=== PATIENT | male | born 1940 | race Caucasian/White ===

== ENCOUNTER 2024-12-18 09:25 | Inpatient (IN) | payer MEDICARE, SELFPAY ==
--- OUTSIDE RECORDS SUMMARY | 2023-09-21 07:20 | XMS_ITS ---
Author Organization [email or web address] Address [address] [place] [address] Care Team Providers Care Sugar Presser Name Role Phone Michael Kirk Primary Care Provider Noel Escobar PATIENT ACCOUNTS COORDINATOR, [facility] [phone] ALLERGIES No Known Allergies REASON FOR VISIT left knee MEDICATIONS Medication SIG (Take, Route, Frequency, Duration) Notes Start Date End Date Status Ramipril 5 MG 1 capsule Orally Onc e a day for 30 day(s) Active Cephalexin 500 MG 1 capsule Orally Thr ee times a day for 10 days 09/07/2023 Active Cephalexin 500 MG 1 capsule Orally Thr ee times a day for 10 days 09/07/2023 Active methylPREDNISolone 4 MG as directed Orally 024 Active Aspirin 81 81 MG 1 tablet Orally Once a day for 30 day(s) Active Hydrochlorothiazide 25 MG 1 tablet Orall y Once a day for 30 day(s) Active Escitalopram Oxalate 10 MG 1 tablet Oral ly Once a day for 30 day(s) Active Atorvastatin Calcium 10 MG 1 tablet Oral ly Once a day for 30 day(s) Active Pantoprazole Sodium 40 MG 1 tablet Orall y Once a day for 30 day(s) Active SOCIAL HISTORY Tobacco Use: Social History Observation Description Date Details (start date - stop date) Former Smoker 04/24/1974 - 04/24/1989 Sex Assigned At : Social History Observation Description Sex Assigned At Unknown Tobacco Use: Question Answer Notes Patient is a: former smoker When did you start smoking? 04/24/1974 When did you stop smoking? 04/24/1989 Alcohol screening: Question Answer Notes Did you have a drink contain ing alcohol in the past year? Yes How often did you have a dri nk containing alcohol in the past year? Two to four times a month (2 points) How many drinks did you have on a typical day when you were drinking in the past year? 3 or 4 (1 point) How often did you have six o r more drinks on one occasion in the past year? Never (0 points) Points 3 Interpretation Negative PROBLEMS Problem Type ICD Code Onset Dates Problem Status W/U Status Risk SNOMED Code Notes Problem Contusion of left knee, subsequent encounter (S80.02XD) 4 Active confirmed [id number] Problem Fall, subsequent encounter (W19.XXXD) 4 Active confirmed 3763250 VITAL SIGNS Blood pressure systolic 120 mm Hg 09/21/19 24 Blood pressure diastolic 70 mm Hg 024 Height 71 in 09/21/2023 Weight 190 lbs 09/21/2023 BMI 26.50 kg/m2 09/21/2023 Encounters Encounter Location Date Provider Diagnosis [facility] [address], [place] [address] 09/21/2023 Brittany Escobar NP Contusion of left knee, initial encounter S80.02XA ; Prepatellar bursitis of left knee M70.42 and Fall, subsequent encounter W19.XXXD ASSESSMENTS Encounter Date Diagnosis Assessment Notes Treatment Notes Treatment Clinical Notes 09/21/2023 Contusion of left knee, initial encounter (ICD-10 - S80.02XA) 09/21/2023 Prepatellar bursitis of left knee (ICD-10 - M70.42) 09/21/2023 Fall, subsequent encounter (ICD-10 - W19.XXXD) PLAN OF TREATMENT No Information History and Physical Notes * HPI (History of Present Illness) Category Sub-Category Detail Notes Depression Screening PHQ-2 (2015 Edition) Little interest or pleasure in doing things?: More than half the days Feeling down, depressed, or hopeless?: M ore than half the days Total Score: 4
--- OUTSIDE RECORDS SUMMARY | 2023-09-28 08:40 | XMS_ITS ---
Author Organization [facility] Address [address] [place] [address] Care Team Providers Care Salesperson Shoes Name Role Phone Michael Kirk Primary Care Provider Unavailrolando Escobar SENIOR APPLICATION SECURITY CONSULTANT, Brittany Unavailable [phone] Mario Alberto SOOD, James Mckeon [phone] REASON FOR VISIT rt thumb Encounters Encounter Location Date Provider Diagnosis [facility] [address] [place] [address] 09/28/2023 James Llanes MD PLAN OF TREATMENT No Information
--- OUTSIDE RECORDS SUMMARY | 2023-10-05 07:40 | XMS_ITS ---
Author Organization [facility] Address [address] [place] [address] Care Team Providers Care Invoice Machine Operator Name Role Phone Michael Kirk Primary Care Provider Noel Escobar NP, [facility] [phone] ALLERGIES No Known Allergies REASON FOR VISIT lt knee f/u MEDICATIONS Medication SIG (Take, Route, Frequency, Duration) Notes Start Date End Date Status Hydrochlorothiazide 25 MG 1 tablet Orall y Once a day for 30 day(s) Active methylPREDNISolone 4 MG as directed Orally 024 Not-Taking Cephalexin 500 MG 1 capsule Orally Three times a day for 10 days 09/07/2023 Not-Taking Cephalexin 500 MG 1 capsule Orally Three times a day for 10 days 09/07/2023 Active Ramipril 5 MG 1 capsule Orally Onc e a day for 30 day(s) Active Atorvastatin Calcium 10 MG 1 tablet Oral ly Once a day for 30 day(s) Active Escitalopram Oxalate 10 MG 1 tablet Oral ly Once a day for 30 day(s) Active Pantoprazole Sodium 40 MG 1 tablet Orall y Once a day for 30 day(s) Active Aspirin 81 81 MG 1 tablet [...] Never (0 points) Points 3 Interpretation Negative VITAL SIGNS Blood pressure systolic 120 mm Hg 10/05/19 24 Blood pressure diastolic 70 mm Hg 024 Height 71 in 10/05/2023 Weight 190 lbs 10/05/2023 BMI 26.50 kg/m2 10/05/2023 Encounters Encounter Location Date Provider Diagnosis [facility] [address] [place] [address] 10/05/2023 Brittany Escobar NP Prepatellar bursitis of left knee M70.42 and Fall, subsequent encounter W19.XXXD ASSESSMENTS Encounter Date Diagnosis Assessment Notes Treatment Notes Treatment Clinical Notes 10/05/2023 Prepatellar bursitis of left knee (ICD-10 - M70.42) 10/05/2023 Fall, subsequent encounter (ICD-10 - W19.XXXD) PLAN OF TREATMENT No Information History and Physical Notes * HPI (History of Present Illness) Category Sub-Category Detail Notes Depression Screening PHQ-2 (2015 Edition) Little interest or pleasure in doing things?: More than half the days Feeling down, depressed, or hopeless?: M ore than half the days Total Score: 4
[2024-12-18] VITALS (9 sets, daily range): BP systolic 97–150; BP diastolic 54–89; PULSE 60–70; RESP 14–20; TEMP 35.9–36.6; O2SAT 98–100
--- NOTE | ~2024-12-18 | XR_ITS ---
XR chest 2V 12/19/2024 07:59 Indication: Follow-up left pneumothorax Procedure: 2 view chest Comparison: 12/18/2024 Findings: Stable small left apical pneumothorax measuring 1.8 cm from the visceral to the parietal pleura at the apex. There is a nodular opacity in the left lateral pleural surface of uncertain etiology. No focal pneumonia, edema or significant effusion. Heart size normal. There is atherosclerosis of the aorta. Impression: 1: Stable small left apical pneumothorax. 2: Smoothly marginated pleural-based opacity left mid thorax. Recommend further evaluation with CT. Reviewed, dictated and finalized at location O. Impression: 1: Stable small left apical pneumothorax. 2: Smoothly marginated pleural-based opacity left mid thorax. Recommend further evaluation with CT.
--- NOTE | ~2024-12-18 | CT_ITS ---
EXAMINATION: CT diagnostic chest wo ninfa, 12/19/2024 12:00 CDT HISTORY: left pneumothorax COMPARISON: No comparisons available. TECHNIQUE: CT scan of the chest was performed without IV contrast. One or more of the following dose reduction techniques were used: automated exposure control, adjustment of the mA and/or kV according to patient size, use of iterative reconstruction technique. FINDINGS: No significant coronary calcification is present ([id number]) LUNGS: No tracheomalacia. No bronchiectasis. Moderate emphysematous changes. No areas of bullous formation. Apical scarring noted bilaterally with mild pulmonary fibrotic changes but no significant honeycombing. There is a small left apical anterior basilar pneumothorax with trace posterior right basilar pneumothorax also noted. HEART AND PERICARDIUM: Within normal limits. AORTA: Normal caliber aorta. ADENOPATHY/MEDIASTINUM: None. LIMITED VIEWS OF THE ABDOMEN: Punctate calcified splenic granulomas. Simple appearing right lobe liver cyst 1.5 x 1.6 cm. Punctate calcified liver granuloma is noted. Nonspecific mild patulous appearance of the esophagus. OSSEOUS STRUCTURES: No sclerotic or lytic lesions. No acute rib fracture is identified. Moderate loss of vertebral heights and disc heights throughout with kyphosis noted of the thoracic spine. OVERLYING SOFT TISSUES: Unremarkable. THYROID: The thyroid is unremarkable. IMPRESSION: Left pneumothorax detailed above. Reviewed, dictated and finalized at location A.
--- NOTE | ~2024-12-18 | XR_ITS ---
EXAMINATION: XR chest 1V portable, 12/18/2024 15:35 CDT HISTORY: pneumothorax COMPARISON: Comparison same day. Technique: Single view. Findings: The lungs are clear, no effusion. There is a small left apical pneumothorax. Heart is normal size. Mediastinal and hilar contours are within normal limits. Bony thorax no acute abnormality. Impression: Relatively stable small left apical pneumothorax Reviewed, dictated and finalized at location A. Impression: Relatively stable small left apical pneumothorax
--- NOTE | ~2024-12-18 | XR_ITS ---
XR chest 1V portable 12/18/2024 12:30 Indication: Pneumothorax Procedure: AP portable chest Comparison: 12/18/2024 Findings: Stable small left apical pneumothorax. Heart size normal. No significant effusion. There is atherosclerosis of the aorta. There is a coronary artery stent. Impression: 1: Stable small left apical pneumothorax. Reviewed, dictated and finalized at location O. Impression: 1: Stable small left apical pneumothorax.
--- NOTE | ~2024-12-18 | XR_ITS ---
EXAMINATION: XR chest 2V 12/18/2024 09:59 INDICATION: Left-sided chest pain PROCEDURE: 2 view chest COMPARISON: No prior studies for comparison. FINDINGS: Small left apical pneumothorax. Heart size normal. No mediastinal shift. No focal pneumonia, edema, pleural effusion. No acute osseous abnormality. There is diffuse idiopathic skeletal hyperostosis (DISH) of the thoracic spine. IMPRESSION: 1: Small left apical pneumothorax. Reviewed, dictated and finalized at location O.
--- OUTSIDE RECORDS SUMMARY | 2024-12-18 09:00 | XMS_ITS | Encounter Summary ---
Author Organization [facility] Address [address] [place] [address] Care Team Providers Care Front Desk Associate Name Role Phone Remigio Morgan MD Unavailable Chemo Gonzalez MD Unavailable [phone] Freedrick Yun MD Unavailable Britany Muniz MD Unavailable Jerson Brush MD Unavailable Pawel Cordova MD Unavailable Unknown, Notinfile Primary Care Provider Unavail able Reason for Visit * Reason Comments Chest Pain Chest discomfort on the left side of his chest, started this morning around 5 am is when he noticed it, he says it could have been there sooner than that Encounter Details Date Type Department Care Team (Late st Contact Info) Description 12/18/2024 9:00 AM CDT Office Visit [facility] [place] [address] [place] [address] Bella Miller, [facility] [address] [place] [id number] Chest pain, unspecified type (Primary Dx) Social History Tobacco Use Types Packs/Day Years Used Date Smoking Tobacco: Former Cigarettes Q uit: 1989 Smokeless Tobacco: Never Alcohol Use Standard Drinks/Week Comments Yes 0 (1 standard drink = 0.6 oz pur e alcohol) rare AUDIT-C Answer Date Recorded Q1: How often do you have a drink containing alc ohol? 2-4 times a month 07/13/2023 Q2: How many drinks containi ng alcohol do you have on a typical day when you are drinking? 1 or 2 07/13/2023 Q3: How often do you have si x or more drinks on one occasion? 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 Gender Identity Male 03/25/2020 8:55 AM LAUNDRY MARKER SUPERVISOR Sexual Orientation Not on file documented as of this encounter Last Filed Vital Signs Vital Sign Reading Time Taken Comments Blood Pressure 124/62 12/18/2024 8:53 AM CDT Pulse 67 12/18/2024 8:53 AM CDT Temperature 37 C (98.6 F) 12/18/2024 8:53 AM CDT Respiratory Rate 18 12/18/2024 8:53 AM CDT Oxygen Saturation 97% 12/18/2024 8:53 AM CDT Inhaled Oxygen Concentration - - Weight 82.5 kg (181 lb 14.4 oz) 12/18/2024 8:53 AM CDT Height 180.3 cm (5' 10.98) 12/18/2024 8:53 AM C DT Body Mass Index 25.38 12/18/2024 8:53 AM CDT documented in this encounter Plan of Treatment Scheduled Procedures Name Priority Associated Diagnoses Date/Ti me COLONOSCOPY Screening for colon cancer Colon polyp documented as of this encounter Visit Diagnoses Diagnosis Chest pain, unspecified type- Primary documented in this encounter Care Teams Front Desk Associate Relationship Specialty Start Date End Date Unknown, Notinfile PCP - General 12/18/24 Remigio Morgan MD [address] [place] [address] Referring Physician Cardiology 03/20/18 Chemo Gonzalez MD [address] [place] [address] Referring Physician Otolaryngology 03/20/18 Frederick Yun MD [address] [place] [address] Consulting Physician Gastroenterology 03/20/18 Britany Muniz MD [address] [place] [address] Referring Physician Dermatology 03/20/18 Jerson Brush MD [address] [place] [address] General Surgery 03/20/18 Pawel Cordova MD [address] [place] [address] [address] [facility] [place] [address] Referring Physician Neurology 03/20/18 documented as of this encounter
--- NOTE | 2024-12-18 09:26 | ECG_ITS ---
Test Date: 2024-12-18 09:30:43 Measurements Intervals [place] Rate: 64 P: 64 TN: 185 QRS: 30 QRSD: 132 T: 52 QT: 446 QTc: 462 Interpretive Statements SINUS RHYTHM LEFT BUNDLE BRANCH BLOCK BASELINE ARTIFACT- I, II, III, AVR, AVL, AVF ABNORMAL ECG No previous ECG available for comparison Electronically Signed On 12-18-2024 09:35:07 CDT by Jimmy hWeeler D.O.
--- NOTE | 2024-12-18 10:14 | ED.CHESTPAIN ---
HPI - Chest Pain General Chief Complaint: Chest Pain Stated Complaint: left sided chest discomfort Time Seen by Provider: 12/18/24 09:52 History of Present Illness HPI narrative: This is an 84-year-old male who presents to the ED for chest pain. Patient states that he woke up this morning with left upper chest pain. He has had no shortness of breath cough. He states that his had similar pains few years ago and was diagnosed with heart attack prompting him to come to the ED for further evaluation. No prior cardiac history that he is aware of. He is a nonsmoker. No known traumas. Related Data Home Medications ?Medication ?Instructions ?Recorded ?Confirmed ?Last Taken ?Type atorvastatin 10 mg tablet 10 mg PO DAILY 12/18/24 12/18/24 12/18/24 History escitalopram oxalate 10 mg tablet 10 mg PO DAILY 12/18/24 12/18/24 12/18/24 History hydrochlorothiazide 12.5 mg capsule 12.5 mg PO DAILY 12/18/24 12/18/24 12/18/24 History pantoprazole 40 mg tablet,delayed 40 mg PO DAILY 12/18/24 12/18/24 12/18/24 History release ramipril 5 mg capsule 5 mg PO DAILY 12/18/24 12/18/24 12/18/24 History Allergies Allergy/AdvReac Type Severity Reaction Status Date / Time No Known Allergies Allergy Verified 12/18/24 09:38 Review of Systems Review of Systems: Gen.: Denies fevers or chills Eyes: Denies eye pain or visual change ENT: Denies congestion Respiratory: Denies shortness of breath or cough CV: As per HPI GI: Denies abdominal pain nausea, emesis or diarrhea denies burning, urgency, frequency or hematuria Musculoskeletal: Denies back pain or muscle pain Neuro: Denies numbness, tingling, weakness or focal weakness Skin: Denies rash Except as documented, all other systems reviewed and negative Exam Narrative: APPEARANCE: No acute distress, nontoxic, resting in bed EYES: EOMI HEENT: Normocephalic, atraumatic, OMM RESPIRATORY: No respiratory distress diminished breath sounds to the left apical lung CARDIOVASCULAR: Regular rate and rhythm without murmurs rubs or gallops. ABDOMINAL: Soft, nontender, nondistended, no rebound or guarding MUSCULOSKELETAl: Moves all extremities. No clubbing, cyanosis or edema. NEURO: Awake and alert. Following commands, speech normal, no focal deficits SKIN:: Warm, dry. No rashes lesions or abrasions PSYCHIATRIC: Normal affect/mood, Course Vital Signs Vital signs: Vital Signs Temperature 97.9 F 12/18/24 09:35 Pulse Rate 67 12/18/24 09:35 Respiratory Rate 17 12/18/24 09:35 Blood Pressure 118/89 12/18/24 09:35 Pulse Oximetry 100 12/18/24 09:35 Oxygen Delivery Room Air 12/18/24 09:35 Temperature 97.9 F 12/18/24 09:35 Pulse Rate 60 12/18/24 15:13 Respiratory Rate 17 12/18/24 15:13 Blood Pressure 115/54 L 12/18/24 15:13 Pulse Oximetry 100 12/18/24 15:13 Oxygen Delivery Room Air 12/18/24 09:48 MDM - Chest Pain MDM Narrative Medical decision making narrative: 84-year-old male with history of hyperlipidemia, CAD status post stents x2 who presented to the ED for chest pain. On initial evaluation, patient was in no acute distress, afebrile, hemodynamically stable. He did have diminished breath sounds to the left apical lung. Chest x-ray did reveal a small apical pneumothorax. He was not requiring any supplemental oxygen. This is small enough that it does not require a chest tube at this time. He was placed on supplemental oxygen. After 3 hours of oxygen, repeat chest x-ray was obtained and showed a stable pneumothorax. Labs without significant abnormalities. EKG showed no concerning findings. Given his age and risk factors, for patient would benefit from admission for close monitoring of his pneumothorax. He was placed on non-rebreather to try to resolve the pneumothorax. He I did discuss the case with surgery who will see the patient as consult. Case was discussed with hospitalist who will admit the patient. Differential Diagnosis Differential diagnosis: Likely unstable angina pectoris, atypical chest pain, costochondritis and other (pneumothorax) Medical Records Data Attestation: I reviewed the patient's medical records. Lab Data Attestation: I reviewed the patient's lab results. 12/18/24 10:21 12/18/24 10:21 Labs: Lab Results 12/18/24 12/18/24 Range/Units 10:21 13:54 WBC 8.1 (4.5-10.0) K/mm3 RBC 4.59 L (4.6-6.20) M/mm3 Hgb 14.3 (14.0-18.0) g/dL Hct 43.2 (42.0-52.0) % MCV 94.1 (80-100) fl MCH 31.2 (26-34) pg MCHC 33.1 (32-36) g/dl RDW 12.8 (11.5-14.5) % Plt Count 234 (150-375) k/mm3 MPV 9.4 (7.4-10.4) fl Immature Gran % (Auto) 0.4 (0-0.5) % Neut % (Auto) 58.8 (45.5-73.1) % Lymph % (Auto) 27.3 (18.3-44.2) % [place] % (Auto) 10.8 H (2.6-8.5) % Eos % (Auto) 2.3 (0-4.4) % Baso % (Auto) 0.4 (0.2-1.2) % Lymph # (Auto) 2.21 (0.9-3.2) K/mm3 [place] # (Auto) 0.9 H (0.1-0.6) K/mm3 Eos # (Auto) 0.2 (0-0.3) K/mm3 Baso # (Auto) 0.0 (0.0-0.1) K/mm3 Abs Immat Gran (auto) 0.03 (0.00-0.031) K/mm3 Absolute Neuts (auto) 4.8 (1.3-6.7) K/mm3 Absolute Nucleated RBC 0.000 (0.0-0.012) K/mm3 Nucleated RBC % 0.0 (0.0-0.2) % PT 13.4 (11.1-14.7) Seconds INR 1.0 APTT 37.7 H (22.3-36.8) Seconds Sodium 136 L (137-145) mmol/L Potassium 4.4 (3.4-5.0) mmol/L Chloride 99 (98-107) mmol/L Carbon Dioxide 31 H (22-30) mmol/L Anion Gap 6 (4-12) mmol/L BUN 19 (9-20) mg/dL Creatinine 0.88 (0.7-1.3) mg/dL Estim Creat Clear Calc 56 ml/min Estimated GFR > 60 (59 - ) Glucose 99 (65-110) mg/dL Calcium 9.5 (8.4-10.2) mg/dL Total Bilirubin 1.3 (0.2-1.3) mg/dL AST 35 (17-59) U/L ALT 22 (6-50) U/L Alkaline Phosphatase 63 (38-126) U/L Troponin I < 0.012 < 0.012 (0.000-0.034) ng/mL Total Protein 7.5 (6.3-8.2) g/dL Albumin 4.5 (3.5-5.1) g/dL Lipase 104 (23-300) U/L Imaging Data Radiologist's impression: Impressions Chest X-Ray 12/18/24 10:01 IMPRESSION: 1: Small left apical pneumothorax. Chest X-Ray 12/18/24 12:32 Impression: 1: Stable small left apical pneumothorax. ECG Data EKG #1: Attestation: I personally reviewed and interpreted this ECG as follows: ECG completion date: 12/18/24 ECG completion time: 09:30 Interpretation: Normal sinus rhythm rate of 64, left bundle-branch block, does not meet Sgarbossa criteria Discharge Plan Discharge Clinical Impression: Pneumothorax Qualifiers: Pneumothorax type: spontaneous, primary Qualified Code(s): J93.11 - Primary spontaneous pneumothorax Patient Disposition: Still a Patient Condition: Stable
[2024-12-18 10:28] LABS: Hematocrit 43.2 % (42.0-52.0); Hemoglobin 14.3 g/dL (14.0-18.0); Immature Granulocyte Percent A 0.4 % (0-0.5); Lymphocytes Absolute Auto 2.21 K/mm3 (0.9-3.2); Mean Corpuscular HGB Conc 33.1 g/dl (32-36); Mean Corpuscular Hemoglobin 31.2 pg (26-34); Mean Corpuscular Volume 94.1 fl (80-100); Nucleated Red Blood Cells Absolute Auto 0.000 K/mm3 (0.0-0.012); Nucleated Red Blood Cells Perc 0.0 % (0.0-0.2); Platelet Count Result 234 k/mm3 (150-375); Red Blood Count 4.59 M/mm3 (4.6-6.20); White Blood Count 8.1 K/mm3 (4.5-10.0)
[2024-12-18 10:48] LABS: INR 1.0; Prothrombin Time 13.4 Seconds (11.1-14.7)
[2024-12-18 10:50] LABS: Alanine Aminotransferase 22 U/L (6-50); Albumin Level 4.5 g/dL (3.5-5.1); Alkaline Phosphatase 63 U/L (38-126); Anion Gap 6 mmol/L (4-12); Aspartate Amino Transferase 35 U/L (17-59); Bilirubin,Total 1.3 mg/dL (0.2-1.3); Blood Urea Nitrogen 19 mg/dL (9-20); Calcium 9.5 mg/dL (8.4-10.2); Carbon Dioxide 31 mmol/L (22-30); Chloride 99 mmol/L (98-107); Estimated CRCL calculation 56 ml/min; Estimated Glomerular Filt Rate > 60; Glucose 99 mg/dL (65-110); Lipase 104 U/L (23-300); Potassium 4.4 mmol/L (3.4-5.0); Sodium 136 mmol/L (137-145); Total Protein 7.5 g/dL (6.3-8.2)
[2024-12-18 11:00] LABS: Troponin I < 0.012 ng/mL (0.000-0.034)
--- OUTSIDE RECORDS SUMMARY | 2024-12-18 11:37 | XMS_ITS | Encounter Summary ---
Author Organization [facility] Address 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
--- OUTSIDE RECORDS SUMMARY | 2024-12-18 11:37 | XMS_ITS | Encounter Summary ---
Author Organization [facility] Address 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
--- OUTSIDE RECORDS SUMMARY | 2024-12-18 11:37 | XMS_ITS | Encounter Summary ---
Author Organization [facility] Address 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
--- OUTSIDE RECORDS SUMMARY | 2024-12-18 11:37 | XMS_ITS | Encounter Summary ---
Author Organization [facility] Address 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
--- OUTSIDE RECORDS SUMMARY | 2024-12-18 11:37 | XMS_ITS | Encounter Summary ---
Author Organization [facility] Address 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
--- OUTSIDE RECORDS SUMMARY | 2024-12-18 11:37 | XMS_ITS | Clinical Summary ---
Author Organization [facility] al Address [address] [place] [address] Care Team Providers Care Child Support Officer Name Role Phone Remigio Morgan MD Unavailable Chemo Gonzalez MD Unavailable [phone] Frederick Yun MD Unavailable Britany Muniz MD Unavailable [phone] Jerson Brush MD Unavailable [phone] Pawel Cordova MD Unavailable Unknown, Notinfile Primary Care Provider Unavail able Allergies No known active allergies Medications aspirin 81 mg tabletIndications:Myocar dial Reinfarction Prevention Take 1 tablet (81 mg total) by mouth nightly 09/14/19 11 Active multivitamin/iron/folic acid (CENTRUM ORAL) Take 1 tablet by mouth daily Active hydroCHLOROthiazide (HYDRODIURIL) 12.5 mg tabletIndications:Primar y hypertension TAKE 1 TABLET BY MOUTH EVERY DAY 90 tablet 3 04/27/19 24 Active atorvastatin (LIPITOR) 10 mg tabletIndications:Pure hypercholesterolemia TAKE 1 TABLET BY MOUTH DAILY 90 tablet 3 05/01/19 24 Active ramipriL (ALTACE) 5 mg capsuleIndications:Prima ry hypertension TAKE 1 CAPSULE BY MOUTH EVERY DAY 90 capsule 3 07/24/19 24 Active escitalopram (LEXAPRO) 10 mg tabletIndications:Reacti ve depression Take 1 tablet (10 mg total) by mouth daily 90 tablet 3 07/31/[address] (PROTONIX) 40 mg EC tabletIndications:Gastro esophageal reflux disease without esophagitis Take 1 tablet (40 mg total) by mouth daily 90 tablet 3 07/31/19 24 Active meloxicam (MOBIC) 7.5 mg tabletIndications:Cuboid syndrome of right foot,Pain of midfoot, right Take 1 tablet (7.5 mg total) by mouth daily for 10 days, THEN 1 tablet (7.5 mg total) daily as needed for pain for up to 7 days. 17 tablet 01/17/20 24 Active Active Problems Problem Noted Date Diagnosed Date Pain of midfoot, right 01/17/2024 Cuboid syndrome of right foot 01/17/2024 Assessment & Plan (01/17/2024 2:10 PM CDT): Clinically suspected mechanically induced arthralgia vs gout No evidence of infectious etiology Labs & baseline xray today r/o stress fx, erosive or inflammatory arthritis, gout +meloxicam x 10 days then prn;SER Counseled of supportive measures, bracing, heat/ice, topical analgesics, modifications interim Pending order for PT & podiatry further eval pending wrkup Penile lesion 05/05/2022 Assessment & Plan (05/05/2022 11:32 AM VIDEO CONTROL ENGINEER): Very sharply marginated red area on the tip of the penis. Suggest urology vs derm referral. Thyroid nodule 04/06/2021 Overview (05/05/2022): 05/2021 biopsy of one of nodules with benign cytology Assessment & Plan (05/05/2022 11:21 AM VIDEO CONTROL ENGINEER): Checking ultrasound again. No obvious symptoms. Recent biopsy as noted. Assessment & Plan (04/06/2021 1:53 PM VIDEO CONTROL ENGINEER): No obvious associated symptoms. Get a 1 time ultrasound to make certain this appears benign. High threshold for further evaluation. Discussed this in great detail with the patient. Dupuytren's contracture of left hand 09/22/2020 Assessment & Plan (09/22/2020 11:49 AM CDT): Chronic; without change or limitation to ADLs, weakness. Bracing would be of benefit. Declined desire for further consultation, management today. Will cont to monitor Medicare annual wellness visit, subsequent 03/26 Assessment & Plan (07/13/2023 10:55 AM CDT): Checking labs per routine and pertaining to problems listed . HM items reviewed and updated . No new concerns. Immunizations are utd Assessment & Plan (05/05/2022 11:21 AM VIDEO CONTROL ENGINEER): Checking labs per routine and pertaining to problems listed . HM items reviewed and updated . No new concerns. Recommended covid vaccine. Assessment & Plan (04/06/2021 10:58 AM VIDEO CONTROL ENGINEER): Checking labs per routine and pertaining to problems listed . HM items reviewed and updated . No new concerns. No new concerns. Assessment & Plan (04/03/2020 1:28 PM VIDEO CONTROL ENGINEER): Checking labs per routine and pertaining to problems listed . HM items reviewed and updated . No new concerns. Assessment & Plan (03/26/2019 12:51 PM VIDEO CONTROL ENGINEER): Checking labs per routine and pertaining to problems listed . HM items reviewed and updated . No new concerns. Urinary frequency 08/30/2018 Assessment & Plan (03/26/2019 12:51 PM VIDEO CONTROL ENGINEER): He has flomax in case sx get worse. Assessment & Plan (08/30/2018 11:47 AM CDT): Some increased in nocturia lately . May consider flomax. 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 No signs of recurrence. Reactive depression 03/20/2018 Assessment & Plan (07/13/2023 10:57 AM CDT): No obvious symptoms related . Taking his meds without complications. Assessment & Plan (05/05/2022 11:22 AM VIDEO CONTROL ENGINEER): Remains a chronic issue . He is not interested in counseling, Or adjustment in antidepressants. Fortunately no HI/SI. Assessment & Plan (04/06/2021 1:50 PM VIDEO CONTROL ENGINEER): Persistent. He he believes this will never get better since the loss of his . No SI/HI. Continue Lexapro for now. Assessment & Plan (04/03/2020 1:21 PM VIDEO CONTROL ENGINEER): Has been improved with the lexapro. Assessment & Plan (09/23/2019 1:39 PM CDT): Continue with lexapro No new complications Assessment & Plan (03/26/2019 1:08 PM VIDEO CONTROL ENGINEER): Continue with lexapro for now and may increase the dose over time. Assessment & Plan (08/30/2018 11:46 AM CDT): Psychological condition is Poorly controlled. Still severe depression. NOSI/HI. Trouble sleeping and with low energy . Assessment & Plan (03/20/2018 2:23 PM VIDEO CONTROL ENGINEER): Psychological condition is Poor now with some depression And no SI. Vitamin D deficiency 03/20/2018 Assessment & Plan (07/13/2023 10:59 AM CDT): Checking vitamin d level. NO new concerns. Assessment & Plan (04/06/2021 1:50 PM VIDEO CONTROL ENGINEER): Checking levels today. Continue supplements. Assessment & Plan (03/26/2019 1:07 PM VIDEO CONTROL ENGINEER): Checking labs now . No concerns. Assessment & Plan (03/20/2018 2:31 PM VIDEO CONTROL ENGINEER): Checking labs now Fatigue 09/14/2011 Assessment & Plan (07/13/2023 10:57 AM CDT): Energy is overall fine. Some fatiguability Assessment & Plan (08/30/2018 11:45 AM CDT): Has been chronic and bothersome. No obvoius source. Some trouble With sleeping. Assessment & Plan (03/20/2018 2:18 PM VIDEO CONTROL ENGINEER): Some chronic unchanged. Chronic coronary artery disease 12/01/2009 Assessment & Plan (07/13/2023 10:58 AM CDT): No chest pain, palpitations, sob or other complaints. Assessment & Plan (05/05/2022 11:23 AM VIDEO CONTROL ENGINEER): No obvious new symptoms. Has had a cardiology full assessment recently . No active symptoms. Assessment & Plan (04/03/2020 1:26 PM VIDEO CONTROL ENGINEER): No recent symptoms related. Continue current regimen Assessment & Plan (08/30/2018 11:43 AM CDT): Coronary artery disease is Well controlled and follwing with dr shelton Ankylosing spondylitis 12/01/2009 Assessment & Plan (07/13/2023 10:59 AM CDT): No obvious new complaints. Assessment & Plan (05/05/2022 11:31 AM VIDEO CONTROL ENGINEER): Encouraged physical therapy exercises. Symptoms are tolerable. NO new complications. Assessment & Plan (09/23/2019 1:40 PM CDT): No recurrent sx. No progressive back or neck pain. Assessment & Plan (03/26/2019 1:09 PM VIDEO CONTROL ENGINEER): No new symptoms since fused . Assessment & Plan (03/20/2018 2:15 PM VIDEO CONTROL ENGINEER): No progressive complaints. Some bending forward more over time. Hyperlipidemia 12/01/2009 Assessment & Plan (07/13/2023 10:56 AM CDT): NO obvious sx or side effects from the elevation in cholesterol. Taking meds without obvious side effects . No muscle aches nor weakness. Assessment & Plan (05/05/2022 11:22 AM VIDEO CONTROL ENGINEER): NO obvious sx or side effects from the elevation in cholesterol. Taking meds without obvious side effects . No muscle aches nor weakness. Assessment & Plan (04/03/2020 1:26 PM VIDEO CONTROL ENGINEER): Checking labs now Assessment & Plan (03/26/2019 1:08 PM VIDEO CONTROL ENGINEER): Continue with current meds. No concerns. Assessment & Plan (03/20/2018 2:09 PM VIDEO CONTROL ENGINEER): Lipid abnormalities are well controlled on current regimen . No complications Hypertension 12/01/2009 Assessment & Plan (07/13/2023 10:56 AM CDT): Blood pressure is well controlled on current regimen. No complications. Assessment & Plan (05/05/2022 11:22 AM VIDEO CONTROL ENGINEER): Blood pressure is adequately controlled Assessment & Plan (04/06/2021 1:51 PM VIDEO CONTROL ENGINEER): Blood pressure well controlled. Assessment & Plan (04/03/2020 1:21 PM VIDEO CONTROL ENGINEER): Hypertension is improving with treatment. Associated signs and symptoms: none. Medication Side effects, no medication side effects noted and fatigue Continue current treatment regimen. Patient Education: Reviewed risks of hypertension and principles of treatment. Blood pressure will be reassessed at the next regular appointment. Assessment & Plan (09/23/2019 1:39 PM CDT): Well controlled though some orthostatic change is minimal. No complications Assessment & Plan (03/26/2019 12:52 PM VIDEO CONTROL ENGINEER): bp has been well controlled. No chest pain, palpitatoins . Assessment & Plan (08/30/2018 11:44 AM CDT): Hypertension is Well controlled on current regimen . Assessment & Plan (03/20/2018 2:10 PM VIDEO CONTROL ENGINEER): Hypertension is well controlled on current regimen . No complications. Resolved Problems Problem Noted Date Diagnosed Date Resolved Date Effusion of olecranon bursa, left 09/22/2020 04/06/2021 Olecranon bursitis of left elbow 09/22/2020 04/06/2021 Assessment & Plan (09/22/2020 11:56 AM CDT): Traumatic, noninfectious Xray today given preceding trauma Neurovascularly intact Compression, ice, elevation Declined desire for UC for drainage- indications warranting UC, ED provideded Consult placed to [facility] at [facility] for drainage as offered conservative management in the interim. Chest x-ray abnormality 09/23/201904/24 Overview (05/05/2022): Chest ct in 2020 Unchanged 3 mm pulmonary nodule in the right upper lobe which requires no further follow-up per Fleischner Society guidelines. Assessment & Plan (04/06/2021 10:54 AM VIDEO CONTROL ENGINEER): Found with thyroid nodule.NO obvious complications nor symptoms. No further follow up on lung scan Assessment & Plan (04/03/2020 1:28 PM VIDEO CONTROL ENGINEER): Pulmonary nodule That is small and unlikely of significance. Will get f/u chest ct in September Assessment & Plan (09/23/2019 1:39 PM CDT): Likely this was atelacetasis. No complications. Reassured A f/u cxr was fine. Chronic frontal sinusitis 05/28/2018 Nasal mass 05/10/2018 04/06/2021 Leukocytosis 01/26/2015 05/05/2022 Encounters Date Type Department Care Team Description 12/18/2024 9:00 AM CDT Office Visit [facility] [address] [address] Bella Miller, DEVIN Chest pain, unspecified type (Primary Dx) from Last 3 Months Immunizations Immunization Administration Dates Next Due Influenza, Quadrivalent, Hig h Dose, Preservative Free, Intrr 01/24/2022,01/12/2021,02/10/2020 Influenza, Quadrivalent, Spl it, Preservative Free, Intramuscular 01/28/2015 Influenza, Trivalent, High D ose, Split, Preservative Free, Intramuscular 02/04/2019,02/04/2018,01/31/2017 Influenza, Trivalent, IM (MDV) 05/22/2017 Influenza, Trivalent, Preser vative Free, Intramuscular 02/04/2013,02/07/2012,02/07/2011 Influenza, Unspecified 02/04/2019 Pneumococcal Conjugate PCV 13 05/22/2017, 015 Pneumococcal Conjugate Pcv20 01/25/2022 Pneumococcal Polysaccharide PPV23 02/10/2017 ZOSTER Recombinant 11/09/2018,09/07/2018 Surgical History Surgery Date Site/Laterality Comments KNEE SURGERY 04/24/2007 - 04/23/2008 Left I and D pre-patellar bursa SINUS SURGERY 04/24/2018 - 04/23/2019 resection papilloma CATARACT EXTRACTION COLONOSCOPY CORONARY ANGIOPLASTY WITH STENT PLACEMENT 04/24/2002 - 04/23/2003 OTHER SURGICAL HISTORY thyroid biopsy Medical History Medical History Date Comments Tear of lateral cartilage or meniscus of knee, current Displaced Acute Lateral Meni scus Tear Of The Left Knee - (Added by TW Conv) Anxiety Sinusitis Squamous cell skin cancer Colon polyp Hyperlipidemia Coronary artery disease Hypertension Lesion of penis Myocardial infarct, old Thyroid nodule Depression HL (hearing loss) bilateral hear ing aides Family History Medical History Relation Name Comments No Known Problems Daughter Heart disease Father Stroke Father Stroke Syndrome - (Added by TW Conv) Diabetes Mother Diabetes Mellit us - (Added by TW Conv) Heart attack Mother Acute Myocardia l Infarction - (Added by TW Conv) Heart disease Mother ALS Sister 1 Amyotrophic Lat eral Sclerosis - (Added by TW Conv) No Known Problems Sister 2 No Known Problems Son 1 No Known Problems Son 2 Anesthesia problems Neg Hx Relation Name Status Comments Daughter Alive Father Mother Sister 1 Sister 2 Alive Son 1 Alive Son 2 Alive Social History Tobacco Use Types Packs/Day Years Used Date Smoking Tobacco: Former Cigarettes Q uit: 1989 Smokeless Tobacco: Never Tobacco Cessation:Counseling Given: Not Answered Alcohol Use Standard Drinks/Week Comments Yes 0 [...] on file Legal Sex Male 3:27 AM VIDEO CONTROL ENGINEER Gender Identity Male 03/25/2020 8:55 AM VIDEO CONTROL ENGINEER Sexual Orientation Not on file Obstetrics History Last Filed Vital Signs Vital Sign Reading [...] Mass Index 25.38 12/18/2024 8:53 AM CDT Plan of Treatment Scheduled Procedures Name Priority Associated Diagnoses Date/Ti me COLONOSCOPY Screening for colon cancer Colon polyp Health Maintenance Due Date Last Done Comments Hepatitis B Screening 1958 Covid-19 Vaccine (2023- 5 season) 2023 11/23/2021, 01/15/2021, 06/09/2020, Additional history exists Depression Screening 07/12/2024 07/13/2023, 05/05/2022, 04/06/2021, Additional history exists Fall Risk Assessment 07/12/2024 07/13/2023, 06/07/2022, 05/05/2022, Additional history exists Well Visit 65+ 07/12/2024 07/13/2023, 04/24, 04/06/2021, Additional history exists Influenza Vaccine (#1) 2024 , 01/09/2023, 05/02/2022, Additional history exists Colon Cancer Screening-Colonoscopy 06/18/2026 06/18/2021, 04/27/2017 Zoster Vaccine Completed 11/09/2018, 09/07/2018 Pneumococcal vaccine 65+ Completed 023, 01/25/2022, 05/22/2017, Additional history exists DTaP/Tdap/Td Vaccine Discontinued Medical Devices Implanted Type Area Rustic Terrazzo Setter Device Identifier Shelf Expiration Date Model / Serial / Lot Stents X 2 N/A: Heart Procedures Procedure Name Priority Date/Time Associated Diagnosis Comments COLONOSCOPY 06/18/2021 3:22 PM VIDEO CONTROL ENGINEER from Last 3 Months or Most Recently Relevant to Health Maintenance Results * COLONOSCOPY (06/18/2021 3:22 PM VIDEO CONTROL ENGINEER) Anatomical Region Laterality Modality Other Narrative Procedure Note Loren Hi MD - 06/18/2021 3:22 PM CST ENDOSCOPY LAB Patient Name: Jonathan Stein Procedure Date: 06/18/2021 3:22 PM Date of : 1940 Admit Type: Outpatient Age: 80 Gender: Male Attending MD: Loren Hi M.D. Room: [facility] 04 Note Status: Finalized Procedure: Colonoscopy Indications: High risk colon cancer surveillance: Personalhistory of colonic polyps, last five years ago per patient with one polyp found Providers: Loren Hi M.D. Referring MD: Michael Kirk M.D. Medicines: None Complications: No immediate complications. Estimated Blood Loss: Estimated blood loss: none. Procedure: Pre-Anesthesia Assessment: - Prior to the procedure, a History and Physicalwas performed, and patient medications, allergies and sensitivities were reviewed. Patient elected tohave procedure done without sedation. - The risks and benefits of the procedure and the sedation options and risks were discussed with the patient. All questions were answered and informed consent was obtained. - Patient identification and proposed procedurewere verified prior to the procedure by the physicianand the nurse. The procedure was verified in theprocedure room. The benefits, risks and alternatives of theprocedure and sedation were discussed and informed consentwas obtained. All questions were answered. Please referto the signed informed consent document in the medical record. The scope was passed under direct vision.The [id number] was introduced through the anusand advanced to the terminal ileum, with identificationof the appendiceal orifice and IC valve. Thecolonoscopy was performed without difficulty. The patient tolerated the procedure well. Findings: The perianal and digital rectal examinations were normal. The terminal ileum appeared normal. A single medium-sized angiodysplastic lesion without bleeding wasfound in the ascending colon. A 3 mm polyp was found in the ascending colon. The polyp was sessile. The polyp was removed with a cold biopsy forceps. Resection and retrieval were complete. Verification of patient identification forthe specimen was done. A 3 mm polyp was found in the transverse colon. The polyp wassessile. The polyp was removed with a cold biopsy forceps. Resection and retrieval were complete. External hemorrhoids were found during retroflexion. The hemorrhoids were small. Impression: - The examined portion of the ileum was normal. - A single non-bleeding colonic angiodysplasticlesion. - One 3 mm polyp in the ascending colon, removedwith a cold biopsy forceps. Resected and retrieved. - One 3 mm polyp in the transverse colon, removedwith a cold biopsy forceps. Resected and retrieved. - External hemorrhoids. Recommendation: - The patient will be observed post-procedure,until all discharge criteria are met. - Resume previous diet. - Await pathology results. - Recommend discussing risk/benefits of future colonoscopies with primary care doctor. If patient wishes to pursue further colonoscopies, likely will need repeat in 5 years. Loren Hi M.D. 06/18/2021 3:53:40 PM Number of Addenda: 0 Note Initiated On: 06/18/2021 3:22 PM Loren Hi MD ENDOSCOPY PROCEDURES Final Result from Last 3 Months or Most Recently Relevant to Health Maintenance Insurance [facility] [employer] [facility] Address: [address] [address] [place] [address] [facility] MEDICARE [facility] MEDICARE [facility] MEDICARE [facility] MEDICARE Advance Directives For more information, please contact: [phone] * Full Code (Latest Code Status on File) Date Activated Date Inactivated Comments 06/18/2021 1:31 PM 06/18/2021 8:21 PM * Full Code Date Activated Date Inactivated Comments 06/12/2018 7:00 PM 06/13/2018 6:38 PM Care Teams Child Support Officer Relationship Specialty Start Date End Date Unknown, Notinfile PCP - General 12/18/24 Remigio Morgan MD [address] [place] [address] Referring Physician Cardiology 03/20/18 Chemo Gonzalez MD [address] [place] [address] Referring Physician Otolaryngology 03/20/18 Frederick Yun MD [address] [place] [address] Consulting Physician Gastroenterology 03/20/18 Britany Muniz MD [address] [place] [address] Referring Physician Dermatology 03/20/18 Jerson Brush MD [address] [place] [address] General Surgery 03/20/18 Pawel Cordova MD [address] [place] [address] DR [address] [facility] [address] [place] [address] Referring Physician Neurology 03/20/18
--- OUTSIDE RECORDS SUMMARY | 2024-12-18 11:37 | XMS_ITS | Encounter Summary ---
Author Organization [facility] Address 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
--- OUTSIDE RECORDS SUMMARY | 2024-12-18 11:37 | XMS_ITS | Clinical Summary ---
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 Gender Identity Not on file Sexual Orientation Not on file Plan of Treatment Health Maintenance Due Date Last Done Comments DTAP/TDAP/TD VACCINES (1 - Tdap) 1959 PNEUMOCOCCAL VACCINE 50+ YEA RS (1 of 1 - PCV) 1988 ZOSTER VACCINE (1 of 2) 1988 RSV VACCINE (60+ or ) (1 - 1-dose 75+ series) 2013 INFLUENZA VACCINE (#1) 2024 Colorectal Cancer Screening Discontinued FIT/FOBT Q 1 year Discontinued 07/05/2000, 06/23/1999 COLORECTAL SCREENING Discontinued FIT-DNA Q 3 years Discontinued Flex Sig/CT Colonography Q 5 years Discontinued Insurance MEDICARE PART A AND B [facility] SUPP Care Teams Vegetable Loader Relationship Specialty Start Date End Date Michael Kirk MD PCP - General Internal Medicine 08/19/13
--- OUTSIDE RECORDS SUMMARY | 2024-12-18 11:37 | XMS_ITS | Encounter Summary ---
Author Organization [facility] Address 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
--- OUTSIDE RECORDS SUMMARY | 2024-12-18 11:37 | XMS_ITS | Encounter Summary ---
Author Organization [facility] Address 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
--- OUTSIDE RECORDS SUMMARY | 2024-12-18 11:37 | XMS_ITS | Encounter Summary ---
Author Organization [facility] Address [address] [place] [address] Care Team Providers Care Fruit Culler Name Role Phone Unavailable Primary Care Provider Unavailabl e Encounter Details Date Type Department Care Team (Late st Contact Info) Description 11/22/2022 Lab Requisition [facility] - DermPath Lab [address] [place] [id number] Britany Muniz MD [address] [place] [address] Neoplasm of uncertain behavior of skin Social History Tobacco Use Types Packs/Day Years Used Date Smoking Tobacco: Never Assessed Sex and Gender Information Value Date Recorded Sex Assigned at Not on file Legal Sex Male 4:45 PM CDT Gender Identity Not on file Sexual Orientation Not on file documented as of this encounter Plan of Treatment Not on file documented as of this encounter Procedures Procedure Name Priority Date/Time Associated Diagnosis Comments DERMATOPATHOLOGY Routine 11/22/2022 12:0 0 AM CDT Neoplasm of uncertain behavior of skin documented in this encounter Results * DERMATOPATHOLOGY (11/22/2022 12:00 AM CDT) Case Report Dermatopathology Report Case: [id number] Authorizing Provider: Britany Muniz MD Collected: 11/22/2022 12:00 AM Ordering Location: [facility] DermPath Lab Received: 11/23/2022 08:58 AM Pathologist: Donnie Thomas MD Specimen: Skin, left inferior lateral neck 5:55 PM CDT DERMATOPATHOLOGY LABORATORY Final Diagnosis Specimen A. 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 The specimen consists of a shave biopsy measuring 8x7x1 mm. Jar 0. 3 5:55 PM CDT DERMATOPATHOLOGY LABORATORY Microscopic Description Specimen A. SKIN, left inferior lateral neck: The epidermis shows parakeratosis, full thickness disorderly maturation of keratinocytes, mitoses at different levels, and dyskeratotic cells. The lesion extends to the base of the biopsy. COMMENT: An invasive squamous cell carcinoma cannot be ruled out. 3 5:55 PM CDT DERMATOPATHOLOGY LABORATORY Disclaimer An external and internal positive and negative controls are appropriate for the histochemical, immunohistochemical and immunofluorescence stain(s) in this case (if any), except where stated explicitly. The performance characteristics of the stain(s) cited in this report were developed and its performance characteristic determined by the Dermatopathology Laboratory at [facility], directed by Dr. Keira Thomas. These tests need not be, and therefore are not, approved by the [place] Food and Drug Administration. The tests are used for clinical purposes. Billing Codes Specimen Charges Stain Charges 90351 1 3 5:55 PM CDT DERMATOPATHOLOGY LABORATORY Embedded Images 3 5:55 PM CDT DERMATOPATHOLOGY LABORATORY Pathology/Cytolog y TISSUE SPECIMEN FROM SKIN / Unknown 11/22/2022 11/23/2022 8:58 AM CDT us Britany Muniz MD LAB - PATHOLOGY/CYTOLOGY SACHIN AMIN Final Result DERMATOPATHOLOGY LABORATORY [facility] - Department of Dermatology [address] [place] [address], [facility] [phone] documented in this encounter Visit Diagnoses Diagnosis Neoplasm of uncertain behavior of skin documented in this encounter
--- OUTSIDE RECORDS SUMMARY | 2024-12-18 11:37 | XMS_ITS | Clinical Summary ---
Author Organization [facility] [email or web address] Address [address] [place] [address] Care Team Providers Care Body Former Name Role Phone Unavailable Primary Care Provider Unavailabl e Source Comments [facility] [email or web address],non-owned Affiliates and Associated Physician Practices is amultiple site organization consisting of ambulatory clinics and hospital sitesin [place], [place], [place] and [place]. This disclosure is being madepursuant to the Care Everywhere program and may not contain all information available regarding this patient. Last updated 18.[facility] [email or web address] Social History Tobacco Use Types Packs/Day Years Used Date Smoking Tobacco: Never Assessed Sex and Gender Information Value Date Recorded Sex Assigned at Not on file Legal Sex Male 4:45 PM CDT Gender Identity Not on file Sexual Orientation Not on file Plan of Treatment Health Maintenance Due Date Last Done Comments DTAP/TDAP/TD VACCINES (1 - Tdap) 1957 PNEUMOCOCCAL VACCINE 50+ (1 of 1 - PCV) 1988 ZOSTER VACCINE (1 of 2) 1988 Respiratory Syncytial Virus (RSV) Vaccine Pt: or over 60 yrs (1 - 1-dose 75+ series) 2013 COVID-19 VACCINE (2023-2 5 season) 2023 DEPRESSION SCREENING 04/24/2024 MEDICARE AWV CALENDAR YEAR 2024 INFLUENZA VACCINE (#1) 2024 HEPATITIS B VACCINE Aged Out No longe r eligible based on patient's age to complete this topic HIB VACCINE Aged Out No longer eligi ble based on patient's age to complete this topic HPV VACCINE Aged Out No longer eligi ble based on patient's age to complete this topic MENINGOCOCCAL (Group B) VACC INE SHARED DECISION-MAKING Aged Out No longer eligibl e based on patient's age to complete this topic MENINGOCOCCAL GROUPS A/C/Y/W VACCINE Aged Out No longer eligible b ased on patient's age to complete this topic Insurance [employer] MEDICARE ADV
--- OUTSIDE RECORDS SUMMARY | 2024-12-18 11:37 | XMS_ITS | Encounter Summary ---
Author Organization [facility] Address [address] [place] [address] Care Team Providers Care Reed Polisher Name Role Phone Michael Kirk MD Primary Care Provider [phone] Encounter Details Date Type Department Care Team (Late st Contact Info) Description 10/28/1998 Outpatient Historical [facility] Chemo Lloyd Social History Tobacco Use Types Packs/Day Years Used Date Smoking Tobacco: Never Assessed Sex and Gender Information Value Date Recorded Sex Assigned at Not on file Legal Sex Male 3:48 AM COAL WEIGHER Gender Identity Not on file Sexual Orientation Not on file documented as of this encounter Plan of Treatment Not on file documented as of this encounter Visit Diagnoses Not on filedocumented in this encounter Care Teams Reed Polisher Relationship Specialty Start Date End Date Michael Kirk MD PCP - General Internal Medicine 08/19/13 documented as of this encounter
--- OUTSIDE RECORDS SUMMARY | 2024-12-18 11:37 | XMS_ITS | Patient Health Record ---
Author Organization [facility] Address [address] [address] Care Team Providers Care Segmental Wall Installer Name Role Phone Michael Kirk Primary Care Provider Noel Escobar FAMILY LAW PARALEGAL, [facility] [phone] ALLERGIES No Known Allergies REASON FOR REFERRAL No Information MEDICATIONS Medication SIG (Take, Route, Frequency, Duration) [...] e a day for 30 day(s) Active IMMUNIZATIONS Vaccine Route Administration Date Status Comme nts pneumoccocal Unknown 01/30/2023 Administered Influenza Unknown 05/02/2022 Administered Influenza Unknown 10/02/2020 Refused pneumoccocal Unknown 10/02/2020 Refused SOCIAL HISTORY Tobacco Use: Social History Observation [...] W/U Status Risk SNOMED Code Notes Problem Olecranon bursitis, left elbow (M70.22) 10/03/19 21 Active confirmed Inflammation of bursa of olecranon (934035493) Problem Contusion of left knee, initial encounter (S80.02XA) 08/17/19 24 Active confirmed [id number] Problem Prepatellar bursitis of left knee (M70.42) 08/17/19 24 Active confirmed 513052810063733 Problem Fall, initial encounter (W19.XXXA) 08/17/19 24 Active confirmed [id number] Problem Contusion of left knee, subsequent encounter (S80.02XD) 09/21/19 24 Active confirmed [id number] Problem Fall, subsequent encounter (W19.XXXD) 09/21/19 24 Active confirmed [id number] PLAN OF TREATMENT No Information Insurance Providers Payer Name Payer Address Payer Phone Subscriber Number Group Number Insured Name Patient Relationship to Insured Coverage Start Date Coverage End Date [employer] Medicare Advantage [address] [place] [phone] [id number] Jonathan Stein Self - patient is the insured MEDICAL (GENERAL) HISTORY Medical History History ICD Code reflux depression Surgical History Surgery Date(Month/Year) Arthroplasty of knee 2003 left knee
--- OUTSIDE RECORDS SUMMARY | 2024-12-18 11:37 | XMS_ITS | Encounter Summary ---
Author Organization [facility] Address 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
--- OUTSIDE RECORDS SUMMARY | 2024-12-18 11:37 | XMS_ITS | Encounter Summary ---
Author Organization [facility] Address [address] [place] [address] Care Team Providers Care Boxing Trainer Name Role Phone Michael Kirk MD Primary Care Provider [phone] Remigio Morgan MD Unavailable Chemo Gonzalez MD Unavailable [phone] Frederick Yun MD Unavailable [phone] Britany Muniz MD Unavailable [phone] Jerson Brush MD Unavailable [phone] Pawel Cordova MD Unavailable Unknown, Notinfile Primary Care Provider Unavail able Encounter Details Date Type Department Care Team (Late st Contact Info) Description 06/12/2018 Documentation [facility] [address] [place] [address] Zakia Donis RN Social History Tobacco Use Types Packs/Day Years Used Date Smoking Tobacco: Former Cigarettes Q uit: 1989 Smokeless Tobacco: Never Alcohol Use Standard Drinks/Week Comments Yes 0 (1 standard drink = 0.6 oz pur e alcohol) rare Sex and Gender Information Value Date Recorded Sex Assigned at Not on file Legal Sex Male 3:27 AM ACTIVITY DIRECTOR Gender Identity Male 03/25/2020 8:55 AM ACTIVITY DIRECTOR Sexual Orientation Not on file documented as of this encounter Plan of Treatment Scheduled Procedures Name Priority Associated Diagnoses Date/Ti me COLONOSCOPY Screening for colon cancer Colon polyp documented as of this encounter Visit Diagnoses Not on filedocumented in this encounter Care Teams Boxing Trainer Relationship Specialty Start Date End Date Michael Kirk MD PCP - General 11/30/16 06/21/24 Unknown, Notinfile PCP - General 12/18/24 Remigio Morgan MD [address] [place] [address] Referring Physician Cardiology 03/20/18 Chemo Gonzalez MD [address] [facility] [address] Referring Physician Otolaryngology 03/20/18 Frederick Yun MD [address] [place] [address] Consulting Physician Gastroenterology 03/20/18 Britany Muniz MD [address] [place] [address] Referring Physician Dermatology 03/20/18 Jerson Brush MD [address] [place] [address] General Surgery 03/20/18 Pawel Cordova MD [address] [facility] [address] Referring Physician Neurology 03/20/18 documented as of this encounter
--- OUTSIDE RECORDS SUMMARY | 2024-12-18 11:37 | XMS_ITS | Encounter Summary ---
Author Organization [facility] Address [address] [place] [address] Care Team Providers Care Blacktop Spreader Name Role Phone Michael Kirk MD Primary Care Provider [phone] Encounter Details Date Type Department Care Team (Late st Contact Info) Description 07/05/2000 Outpatient Historical [facility] Chemo Lloyd Social History Tobacco Use Types Packs/Day Years Used Date Smoking Tobacco: Never Assessed Sex and Gender Information Value Date Recorded Sex Assigned at Not on file Legal Sex Male 3:48 AM STRATEGIES ANALYST Gender Identity Not on file Sexual Orientation Not on file documented as of this encounter Plan of Treatment Not on file documented as of this encounter Visit Diagnoses Not on filedocumented in this encounter Care Teams Blacktop Spreader Relationship Specialty Start Date End Date Michael Kirk MD PCP - General Internal Medicine 08/19/13 documented as of this encounter
--- OUTSIDE RECORDS SUMMARY | 2024-12-18 11:37 | XMS_ITS | Encounter Summary ---
Author Organization [facility] Address 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
--- OUTSIDE RECORDS SUMMARY | 2024-12-18 11:37 | XMS_ITS | Encounter Summary ---
Author Organization [facility] Address [address] [place] [address] Care Team Providers Care Expeditionary [employer] Combat Skills Name Role Phone Michael Kirk MD Primary Care Provider [phone] Encounter Details Date Type Department Care Team (Late st Contact Info) Description 06/23/1999 Outpatient Historical [facility] Chemo Lloyd Social History Tobacco Use Types Packs/Day Years Used Date Smoking Tobacco: Never Assessed Sex and Gender Information Value Date Recorded Sex Assigned at Not on file Legal Sex Male 3:48 AM HYDRAULIC MECHANIC Gender Identity Not on file Sexual Orientation Not on file documented as of this encounter Plan of Treatment Not on file documented as of this encounter Visit Diagnoses Not on filedocumented in this encounter Care Teams [employer] Combat Skills Relationship Specialty Start Date End Date Michael Kirk MD PCP - General Internal Medicine 08/19/13 documented as of this encounter
[2024-12-18 12:02] LABS: Partial Thromboplastin Time 37.7 Seconds (22.3-36.8)
--- NOTE | 2024-12-18 14:02 | ECG_ITS ---
Test Date: 2024-12-18 14:04:26 Measurements Intervals [place] Rate: 60 P: 38 [place]: 186 QRS: -14 QRSD: 137 T: 68 QT: 461 QTc: 463 Interpretive Statements SINUS RHYTHM LEFT BUNDLE BRANCH BLOCK ABNORMAL ECG Compared to ECG 12/18/2024 09:30:43 NO SIGNIFICANT CHANGE Electronically Signed On 12-18-2024 14:40:35 CDT by Jimmy Wheeler D.O.
[2024-12-18 14:24] LABS: Troponin I < 0.012 ng/mL (0.000-0.034)
--- NOTE | 2024-12-18 15:05 | P.HP_ITS ---
H&P: HPI History of Present Illness Date/Time: 12/18/24 15:05 Chief Complaint: Left-sided chest pain Narrative: 84-year-old male presents the hospital with left-sided chest pain. Patient was worried he was having heart attack so presented to the emergency room. Patient states that he was sleeping on his right side last night. He states that usually when sleep sounds right side he has right-sided chest pain. However when he woke up this morning he had left-sided chest pain. He states that he is worried he may be having a heart attack so he came into the emergency room. Patient states that few days ago he was lifting heavy furniture. Patient denies chest trauma, shortness of breath, nausea vomiting fever chills. Patient states that he smoked for about 15 years. Lab work in the ED shows sodium of 136, carbon dioxide 31, troponins x2 negative, chest x-ray shows small left apical pneumothorax with 3 hour repeat showing stable pneumothorax. EKG shows sinus rhythm with left bundle-branch block repeat EKG with no changes. Patient will be placed on observation for 24 hours for the pneumothorax. Review of Systems Review of Systems: 12 systems were reviewed and are negativ e except for as per HPI. [facility] Past Medical History Medical History (Updated 12/18/24 @ 18:37 by Bridget Lloyd APRN) GERD (gastroesophageal reflux disease) Hypertension Depression Hyperlipidemia Social History Social History Smoking status: Former smoker Tobacco type: cigarettes Second hand tobacco smoke exposure: No Alcohol intake: current Drinks per week: 1 Substance use: never Substance use type: does not use Lack of Transportation: No Lack of Food: Never True Current Housing: I Have Housing Concerned About Future Housing: No Difficulty Paying Gas/Electric Bills: No Difficulty Paying for Meds: No Currently Unemployed: No Education: High School Diploma/GED Difficulty w/ Childcare or Family Care: No Spiritual care concerns: No Meds Home Medications and Allergies Home Medications ?Medication ?Instructions ?Recorded ?Confirmed ?Type atorvastatin 10 mg tablet 10 mg PO DAILY 12/18/24 08/11/15 History escitalopram oxalate 10 mg tablet 10 mg PO DAILY 12/1812/18/24 History hydrochlorothiazide 12.5 mg capsule 12.5 mg PO DAILY 0 12/18/24 12/18/24 History pantoprazole 40 mg tablet,delayed 40 mg PO DAILY 12/1812/18/24 History release ramipril 5 mg capsule 5 mg PO DAILY 12/18/2412/18 History Allergies Allergy/AdvReac Type Severity Reaction Status Date / Time No Known Allergies Allergy Verified 12/18/24 09:38 Vital Signs Vital Signs - 24 hr 12/18/24 09:35 12/18/24 09:48 12/18/24 09:50 Temperature 97.9 F Pulse Rate 67 66 Respiratory Rate 17 Blood Pressure 118/89 Pulse Oximetry 100 99 Oxygen Delivery Room Air Room Air 12/18/24 11:59 Temperature Pulse Rate 69 Respiratory Rate 14 Blood Pressure 150/64 H Pulse Oximetry 100 Oxygen Delivery Exam Narrative: General: well appearing, appears stated age. HEENT: normocephalic, atraumatic. Mucous membranes moist. EOMI, PERRLA, bilateral sclera anicteric, no conjunctival injection. Neck supple without JVD, lymphadenopathy, or bruit. Respiratory: clear to ascultation bilaterally. No rales/rhonic/wheezes. Cardiovascular: Regular rate and rhythm, normal S1-S2 upon ascultation. No murmurs, rubs, or clicks. PMI is nondisplaced, capillary refill less than 3 second. Abdomen: Soft, round, no pulsatile masses, nondistended and nontender. No rebound, no guarding. No CVA tenderness, no hepatosplenomegaly. Bowel sounds present to all four quadrants. No high pitch or tinkling sounds, resonant to percussion. Extremities: No cyanosis, clubbing, or edema present. Pulses are palpable 2/2. Active ROM to all four extremities. Neuro: Alert and orientated x 4. PERRLA. Cranial nerves 2-12 intact without focal deficit. Skin: Warm, dry, and intact, without rash, erythema, or lesion. Psych: pleasant, cooperative, normal speech, normal affect, no hallucinations, no dysarthia H&P: Results Labs Labs: Short CBC 12/18/24 Range/Units 10:21 WBC 8.1 (4.5-10.0) K/mm3 Hgb 14.3 (14.0-18.0) g/dL Hct 43.2 (42.0-52.0) % Plt Count 234 (150-375) k/mm3 BMP 12/18/24 10:21 Sodium 136 L Potassium 4.4 Chloride 99 Carbon Dioxide 31 H BUN 19 Creatinine 0.88 Glucose 99 Calcium 9.5 Cardiac Enzymes 12/18/24 12/18/24 Range/Units 10:21 13:54 Troponin I < 0.012 < 0.012 (0.000-0.034) ng/mL Liver Function 12/18/24 Range/Units 10:21 Total Bilirubin 1.3 (0.2-1.3) mg/dL AST 35 (17-59) U/L ALT 22 (6-50) U/L Alkaline Phosphatase 63 (38-126) U/L Albumin 4.5 (3.5-5.1) g/dL Assessment and Plan Assessment and plan (1) Spontaneous pneumothorax: Code(s): J93.83 - Other pneumothorax Status: Acute Assessment and Plan: Pulmonology consulted Surgery consulted in case patient needs chest tube Repeat chest x-ray in the morning Supplemental oxygen (2) Hyperlipidemia: Code(s): E78.5 - Hyperlipidemia, unspecified Status: Acute Assessment and Plan: Continue Lipitor (3) Depression: Code(s): F32.A - Depression, unspecified Status: Acute Assessment and Plan: Continue Lexapro (4) Hypertension: Code(s): I10 - Essential (primary) hypertension Status: Acute Assessment and Plan: Continue ramipril and hydrochlorothiazide (5) GERD (gastroesophageal reflux disease): Code(s): K21.9 - Gastro-esophageal reflux disease without esophagitis Status: Acute Assessment and Plan: Continue Protonix Quality VTE Prophylaxis VTE prophylaxis: mechanical ordered and pharmacologic ordered Hospitalist MIPS Advance Care Plan I have confirmed that the patient's Advanced Care Plan is present, code status is documented, or surrogate decision maker is listed in patient medical record.: Yes Medication Reconciliation I have utilized all available resources to obtain, update and review the patients current medications (includes all prescriptions, OTC, herbals, cannabis, and nutritional supplements).: Yes
--- NOTE | 2024-12-18 15:33 | P.CONGS_ITS ---
Assessment and Plan Assessment and plan (1) Pneumothorax: Code(s): J93.9 - Pneumothorax, unspecified Status: Acute Assessment and Plan: Patient presented with left upper chest pain started this morning. No other symptoms including shortness of breath, palpitations, lightheadedness. Chest x- ray demonstrated small left apical pneumothorax. Stable on repeat chest x-ray 2 hours later. Patient was admitted to medical floor. Repeat chest x-ray ordered. We will follow up with labs and continue to monitor. Discussed the possibility of chest tube placement with patient, pending imaging results and symptoms. Continue supplemental oxygen as needed. Plan Discussed patient's case and plan of care with Dr. Gandhi. History of Present Illness Consult details Consult date: 12/18/24 Reason for consult: other (Pneumothorax) Requesting physician: Vernon Galvan MD Narrative: Patient is an 84-year-old male who we have been asked to see in surgical consultation for a pneumothorax. Patient notes that he woke up with left upper chest pain this morning, which prompted him to present to the ED. upon admission, labs appear fairly normal. aPTT 37.7. Chest x-ray around 10:00 a.m. demonstrated a small left apical pneumothorax. Repeat chest x-ray was performed around 12:30 and showed the pneumothorax to be stable. He denies shortness of breath, palpitations, lightheadedness, or any other symptoms. Denies trauma to the area. Patient has had 2 cardiac stents placed, with the last one being in 2013 and the one prior to that around 2003. Not currently on any anticoagulation aside from baby aspirin. Patient denies being a current smoker. He does admit to smoking 40+ years ago. No history of surgery to the chest. Patient currently receiving oxygen through non-rebreather. Meds Home Medications and Allergies Allergies Allergy/AdvReac Type Severity Reaction Status Date / Time No Known Allergies Allergy Verified 12/18/24 09:38 Vital Signs Vital Signs - 24 hr 12/18/24 09:35 12/18/24 09:48 12/18/24 09:50 Temperature 97.9 F Pulse Rate 67 66 Respiratory Rate 17 Blood Pressure 118/89 Pulse Oximetry 100 99 Oxygen Delivery Room Air Room Air 12/18/24 11:59 12/18/24 15:13 Temperature Pulse Rate 69 60 Respiratory Rate 14 17 Blood Pressure 150/64 H 115/54 L Pulse Oximetry 100 100 Oxygen Delivery Exam 2 Const: General: comfortable and no acute distress Eyes: General: appearance normal, both eyes and all related structures Neck: Neck: supple Chest: Other: Pain to left upper chest directly below axilla Resp: Effort & Inspection: normal respiratory effort Cardio: Rate: regular rate Skin: General skin exam: normal color and no rashes or lesions noted Neuro: Speech: normal speech Sensory Exam: normal sensation Extrem: General: normal to inspection Psych: Mental Status: mental status grossly normal Results Labs 12/18/24 10:21 12/18/24 10:21 Labs: Abnormal lab results 12/18/24 Range/Units 10:21 RBC 4.59 L (4.6-6.20) M/mm3 [place] % (Auto) 10.8 H (2.6-8.5) % [place] # (Auto) 0.9 H (0.1-0.6) K/mm3 APTT 37.7 H (22.3-36.8) Seconds Sodium 136 L (137-145) mmol/L Carbon Dioxide 31 H (22-30) mmol/L Diabetes panel 12/18/24 Range/Units 10:21 Sodium 136 L (137-145) mmol/L Potassium 4.4 (3.4-5.0) mmol/L Chloride 99 (98-107) mmol/L Carbon Dioxide 31 H (22-30) mmol/L BUN 19 (9-20) mg/dL Creatinine 0.88 (0.7-1.3) mg/dL Glucose 99 (65-110) mg/dL Calcium 9.5 (8.4-10.2) mg/dL AST 35 (17-59) U/L ALT 22 (6-50) U/L Alkaline Phosphatase 63 (38-126) U/L Total Protein 7.5 (6.3-8.2) g/dL Albumin 4.5 (3.5-5.1) g/dL Calcium panel 12/18/24 Range/Units 10:21 Calcium 9.5 (8.4-10.2) mg/dL Albumin 4.5 (3.5-5.1) g/dL Pituitary panel 12/18/24 Range/Units 10:21 Sodium 136 L (137-145) mmol/L Potassium 4.4 (3.4-5.0) mmol/L Chloride 99 (98-107) mmol/L Carbon Dioxide 31 H (22-30) mmol/L BUN 19 (9-20) mg/dL Creatinine 0.88 (0.7-1.3) mg/dL Glucose 99 (65-110) mg/dL Calcium 9.5 (8.4-10.2) mg/dL Adrenal panel 12/18/24 Range/Units 10:21 Sodium 136 L (137-145) mmol/L Potassium 4.4 (3.4-5.0) mmol/L Chloride 99 (98-107) mmol/L Carbon Dioxide 31 H (22-30) mmol/L BUN 19 (9-20) mg/dL Creatinine 0.88 (0.7-1.3) mg/dL Glucose 99 (65-110) mg/dL Calcium 9.5 (8.4-10.2) mg/dL Total Bilirubin 1.3 (0.2-1.3) mg/dL AST 35 (17-59) U/L ALT 22 (6-50) U/L Alkaline Phosphatase 63 (38-126) U/L Total Protein 7.5 (6.3-8.2) g/dL Albumin 4.5 (3.5-5.1) g/dL All other labs normal.
[2024-12-18 17:20] LABS: Troponin I < 0.012 ng/mL (0.000-0.034)
[2024-12-18] MEDS: ACETAMINOPHEN 325 MG TABLET 650 MG PO (22:06)
[2024-12-19] VITALS: PULSE 58
[2024-12-19 01:20] VITALS: BP 102/47; PULSE 104; RESP 16; TEMP 36.1; O2SAT 98
[2024-12-19 04:00] VITALS: PULSE 56
[2024-12-19 04:45] VITALS: BP 104/47; PULSE 68; RESP 18; TEMP 36.3; O2SAT 99
[2024-12-19 06:10] LABS: Hematocrit 39.6 % (42.0-52.0); Hemoglobin 13.4 g/dL (14.0-18.0); Immature Granulocyte Percent A 0.2 % (0-0.5); Lymphocytes Absolute Auto 1.71 K/mm3 (0.9-3.2); Mean Corpuscular HGB Conc 33.8 g/dl (32-36); Mean Corpuscular Hemoglobin 31.6 pg (26-34); Mean Corpuscular Volume 93.4 fl (80-100); Nucleated Red Blood Cells Absolute Auto 0.000 K/mm3 (0.0-0.012); Nucleated Red Blood Cells Perc 0.0 % (0.0-0.2); Platelet Count Result 211 k/mm3 (150-375); Red Blood Count 4.24 M/mm3 (4.6-6.20); White Blood Count 5.7 K/mm3 (4.5-10.0)
[2024-12-19 06:35] LABS: Anion Gap 5 mmol/L (4-12); Blood Urea Nitrogen 17 mg/dL (9-20); Calcium 9.1 mg/dL (8.4-10.2); Carbon Dioxide 32 mmol/L (22-30); Chloride 99 mmol/L (98-107); Estimated CRCL calculation 56 ml/min; Estimated Glomerular Filt Rate > 60; Glucose 95 mg/dL (65-110); Potassium 4.2 mmol/L (3.4-5.0); Sodium 136 mmol/L (137-145)
[2024-12-19] MEDS: PANTOPRAZOLE 40 MG TABLET PO (07:45)
[2024-12-19] MEDS: ATORVASTATIN 10 MG TABLET PO (07:46)
[2024-12-19] MEDS: ESCITALOPRAM OXALATE 10 MG TABLET PO (07:46)
[2024-12-19] MEDS: ENOXAPARIN 40 MG/0.4 ML SYRINGE SUB-Q (07:50)
[2024-12-19 08:00] VITALS: BP 127/59; PULSE 65; PULSE 68; RESP 20; TEMP 36.3; O2SAT 100; O2SAT 99
--- NOTE | 2024-12-19 09:11 | PM.CNPUL ---
Assessment and Plan Assessment and plan (1) Spontaneous pneumothorax: Code(s): J93.83 - Other pneumothorax Status: Acute Assessment and Plan: Patient with a 7 pack year tobacco use, quit 1963, exposed to secondhand smoke from his father, worked in the [employer] for 1 year in high school with no history of asthma, COPD, frequent pneumonias. No respiratory limitations in his activities of daily living. He has minimal cough without heavy coughing paroxysms. He moved some furniture and had things pulled tightly to his chest on 12/15 but this was of out any chest trauma. No recent falls. No recent medical procedures. Patient with a spontaneous pneumothorax. Plan: Patient has been hemodynamically stable with adequate oxygenation and no symptoms now. By chest x-ray, pneumothorax has been unchanged for 22 hours. I will obtain a CT scan of the chest to determine if this is a primary spontaneous pneumothorax or a secondary spontaneous pneumothorax. Further recommendations following CT scan. Discussed with Dr. Melendez History of Present Illness History of Present Illness Consult date: 12/19/24 Chief complaint: Spontaneous Pneumothorax Narrative: 12/19/2024: This is a new pulmonary consult for pneumothorax. 84-year-old with a history of hypertension, hyperlipidemia, GERD and depression. At baseline the patient has no respiratory limitations in his activities of daily living. Will walk and run alternatively for 1/4 mi and last did this on 12/16 and 12/17. The patient has no history of asthma, COPD, pneumothorax or pneumonias. The patient smoked tobacco from age [age] at 1 pack per day. He is exposed to secondhand smoke from his father but none since. 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 He denies vaping, illicit drug use, sand blasting, welding, asbestos work, professional painting, coal mining, Quarry work or construction work. patient's hobby is fishing but he does not do this much anymore. Patient denies playing any wind musical instruments. Patient tells me that 2-3 months ago he developed a dry cough that was getting better when he changed his diet to low sugar. The cough was not bothersome and he had no large coughing paroxysms. This was a dry cough with no phlegm and no hemoptysis. on 12/15/2024 the patient moved some heavy furniture that he had compressed up to his chest but he denied any chest trauma and had no rib pain on 12/16 and 12/17. On 12/17/2024 the patient had no respiratory issues and no chest pain. he felt fine when he went to bed. on 12/18/2024 The patient woke up with left-sided chest pressure. He denied that this was left-sided chest pain, he had no shortness of breath, fever, chills, rigors, cough was not changed, phlegm production or hemoptysis. He thought he might be having a heart attack and went to the emergency department. Blood pressure 118/89, heart rate 67, respirations 17, room air saturations 100%. White blood cell count 8.1, creatinine 0.88, troponin negative x3, chest x-ray at 9:51 a.m. with a small left apical pneumothorax. Repeat chest x-ray at 12:22 p.m. with stable small left apical pneumothorax. Chest x-ray at 3:38 p.m. with stable left apical pneumothorax. Patient admitted and placed on 6 L nasal cannula. 12/19/2024: The patient tells me he slept well. He was up walking in the room without his oxygen with room air saturations 100%. He sat down and I placed him on 6 L nasal cannula. He denies any chest pressure or chest pain, no cough, phlegm or hemoptysis. Denies fever chills or rigors. White blood cell count 5.7, creatinine 0.89. Chest x-ray with persistent small left apical pneumothorax that is unchanged in size compared to yesterday. DATA: 12/19/2024 07:59 XR chest 2V Indication: Follow-up left pneumothorax Procedure: 2 view chest Comparison: 12/18/2024 Findings: Stable small left apical pneumothorax measuring 1.8 cm from the visceral to the parietal pleura at the apex. There is a nodular opacity in the left lateral pleural surface of uncertain etiology. No focal pneumonia, edema or significant effusion. Heart size normal. There is atherosclerosis of the aorta. Impression: 1: Stable small left apical pneumothorax. 2: Smoothly marginated pleural-based opacity left mid thorax. Recommend further evaluation with CT. 12/18/2024 09:59 EXAMINATION: XR chest 2V INDICATION: Left-sided chest pain PROCEDURE: 2 view chest COMPARISON: No prior studies for comparison. FINDINGS: Small left apical pneumothorax. Heart size normal. No mediastinal shift. No focal pneumonia, edema, pleural effusion. No acute osseous abnormality. There is diffuse idiopathic skeletal hyperostosis (DISH) of the thoracic spine. IMPRESSION: 1: Small left apical pneumothorax. Review of Systems Constitutional: Constitutional: Reports no additional constitutional complaints Eyes: Eyes: Reports no additional eye complaints ENT: Reports system reviewed and no additional complaints, except as documented Cardiovascular: Cardiovascular: Reports no additional cardiovascular complaints Respiratory: Respiratory: Reports no additional respiratory complaints Gastrointestinal: Gastrointestinal: Reports no additional gastrointestinal complaints Musculoskeletal: Musculoskeletal: Reports no additional musculoskeletal complaints Neurologic: Reports system reviewed and no additional complaints, except as documented Psychiatric: Psychiatric: Reports no additional psychiatric complaints Endocrine: Endocrine: Reports no additional endocrine complaints Hematologic/Lymphatic: Hematologic/Lymphatic: Reports no additional hematologic/lymphatic complaints Allergic/Immunologic: Allergic/Immunologic: Reports no additional allergic/immunologic complaints [facility] Past Medical History Medical History (Updated 12/18/24 @ 18:37 by Bridget Lloyd APRN) GERD (gastroesophageal reflux disease) Hypertension Depression Hyperlipidemia Social History Social History Smoking status: Former smoker Tobacco type: cigarettes Second hand tobacco smoke exposure: No Alcohol intake: current Drinks per week: 1 Substance use: never Substance use type: does not use Lack of Transportation: No Lack of Food: Never True Current Housing: I Have Housing Concerned About Future Housing: No Difficulty Paying Gas/Electric Bills: No Difficulty Paying for Meds: No Currently Unemployed: No Education: High School Diploma/GED Difficulty w/ Childcare or Family Care: No Spiritual care concerns: No Meds Home Medications and Allergies Home Medications ?Medication ?Instructions ?Recorded ?Confirmed ?Type atorvastatin 10 mg tablet 10 mg PO DAILY 12/18/24 12/18/24 History escitalopram oxalate 10 mg tablet 10 mg PO DAILY 12/18/24 12/18/24 History hydrochlorothiazide 12.5 mg capsule 12.5 mg PO DAILY 12/18/24 12/18/24 History pantoprazole 40 mg tablet,delayed 40 mg PO DAILY 12/18/24 12/18/24 History release ramipril 5 mg capsule 5 mg PO DAILY 12/18/24 12/18/24 History Allergies Allergy/AdvReac Type Severity Reaction Status Date / Time No Known Allergies Allergy Verified 12/18/24 09:38 Vital Signs Vital Signs - 24 hr 12/18/24 09:35 12/18/24 09:48 12/18/24 09:50 Temperature 36.6 C Pulse Rate 67 66 Respiratory Rate 17 Blood Pressure 118/89 Pulse Oximetry 100 99 Oxygen Delivery Room Air Room Air Oxygen Flow Rate 12/18/24 11:59 12/18/24 15:13 12/18/24 20:00 Temperature Pulse Rate 69 60 69 Respiratory Rate 14 17 Blood Pressure 150/64 H 115/54 L Pulse Oximetry 100 100 Oxygen Delivery Oxygen Flow Rate 12/18/24 21:30 12/18/24 22:06 12/18/24 23:08 Temperature 35.9 C L Pulse Rate 70 Respiratory Rate 20 Blood Pressure 97/80 L Pulse Oximetry 99 98 99 Oxygen Delivery High Flow Therapy with Na Room Air Oxygen Flow Rate 6 12/19/24 00:00 12/19/24 01:20 12/19/24 04:00 Temperature 36.1 C L Pulse Rate 58 L 104 H 56 L Respiratory Rate 16 Blood Pressure 102/47 L Pulse Oximetry 98 Oxygen Delivery Oxygen Flow Rate 12/19/24 04:45 Temperature 36.3 C L Pulse Rate 68 Respiratory Rate 18 Blood Pressure 104/47 L Pulse Oximetry 99 Oxygen Delivery Oxygen Flow Rate Exam Const: General: cooperative, healthy appearing and comfortable Orientation/consciousness: oriented to person, oriented to place and oriented to time HENMT: Head: normal to inspection Ears: hearing grossly normal bilaterally Eyes: General: appearance normal, both eyes and all related structures Neck: Neck: normal visual inspection Chest: Chest palpation & inspection: normal inspection of the chest Resp: Effort & Inspection: normal respiratory effort and able to speak in complete sentences Auscultation: no crackles, no rales, no rhonchi, no wheezes and lung sounds not diminished Cardio: Jugular venous distension: no JVD GI: Inspection: normal to inspection GI Palp: No abdominal tenderness Skin: General skin exam: normal color Neuro: General: oriented to person, oriented to place and oriented to time Extrem: General: normal to inspection Psych: Appearance: grossly normal Results Laboratory Findings 12/19/24 05:49 12/19/24 05:49 ABG, PT/INR, D-dimer: PT/INR, D-dimer PT 13.4 Seconds (11.1-14.7) 12/18/24 10:21 INR 1.0 12/18/24 10:21 Abnormal lab findings: Abnormal Labs 12/18/24 12/19/24 10:21 05:49 RBC 4.59 L 4.24 L Hgb 13.4 L Hct 39.6 L [place] % (Auto) 10.8 H 14.5 H [place] # (Auto) 0.9 H 0.8 H APTT 37.7 H Sodium 136 L 136 L Carbon Dioxide 31 H 32 H Diagnostic Findings Additional studies: ITS Impressions Chest X-Ray 12/18/24 10:01 IMPRESSION: 1: Small left apical pneumothorax. Chest X-Ray 12/18/24 12:32 Impression: 1: Stable small left apical pneumothorax. Chest X-Ray 12/18/24 16:14 Impression: Relatively stable small left apical pneumothorax Chest X-Ray 12/19/24 08:01 Impression: 1: Stable small left apical pneumothorax. 2: Smoothly marginated pleural-based opacity left mid thorax. Recommend further evaluation with CT.
--- NOTE | 2024-12-19 10:33 | P.PNGS_ITS ---
Progress Note: A&P Assessment and Plan (1) Pneumothorax: Qualifiers: Pneumothorax type: spontaneous, primary Qualified Code(s): J93.11 - Primary spontaneous pneumothorax Code(s): J93.9 - Pneumothorax, unspecified Status: Acute Assessment and Plan: * Patient is doing well today. Repeat Xrays last night and this morning have shown a stable small pneumothorax that has not increased in sized. Patient does not complain of any chest pain today. No need for chest tube placement. * Pulmonology consulted and ordered chest CT to determine if this is a primary or a secondary spontaneous pneumothorax. * OK to wean off of O2. Surgically stable for discharge. Plan Discussed patient's case and plan of care with Dr. Gandhi. Subjective Subjective Date/Time Seen: 12/19/24 10:33 Patient reports: no new complaints and feels better Interval history: No acute events overnight. Patient is doing well today. Chest pain resolved. Sitting up in chair. On 6 L O2 nasal cannula. Pulmonology consulted this morning. Exam Const: General: comfortable and no acute distress Neck: Neck: supple Resp: Effort & Inspection: normal respiratory effort Cardio: Rate: regular rate Objective Data Vital Signs Vital Signs: Vital Signs - 24 hr 12/18/24 11:59 12/18/24 15:13 12/18/24 20:00 Temperature Pulse Rate 69 60 69 Respiratory Rate 14 17 Blood Pressure 150/64 H 115/54 L Pulse Oximetry 100 100 Oxygen Delivery Oxygen Flow Rate 12/18/24 21:30 12/18/24 22:06 12/18/24 23:08 Temperature 96.6 F L Pulse Rate 70 Respiratory Rate 20 Blood Pressure 97/80 L Pulse Oximetry 99 98 99 Oxygen Delivery High Flow Therapy with Na Room Air Oxygen Flow Rate 6 12/19/24 00:00 12/19/24 01:20 12/19/24 04:00 Temperature 96.9 F L Pulse Rate 58 L 104 H 56 L Respiratory Rate 16 Blood Pressure 102/47 L Pulse Oximetry 98 Oxygen Delivery Oxygen Flow Rate 12/19/24 04:45 12/19/24 08:00 12/19/24 08:00 Temperature 97.4 F L Pulse Rate 68 68 Respiratory Rate 18 Blood Pressure 104/47 L Pulse Oximetry 99 99 Oxygen Delivery Nasal Cannula Oxygen Flow Rate 6 Intake/Output Intake/Output: Intake & Output 08/25/25 12/17/24 12/18/24 12/19/24 23:59 23:59 23:59 23:59 Intake Total 150 Balance 150 Meds/Results Medications: Active Medications Generic Name Dose Route Start Last Admin Trade Name Drake PRN Reason Stop Dose Admin Acetaminophen 650 mg 12/18/24 17:56 12/18/24 22:06 Acetaminophen 325 Mg Tablet PO 650 mg Q4H PRN Administration Mild Pain (1-3) or Fever Hydrocodone Bitart/Acetaminophen 1 tab 12/18/24 17:56 Hydrocodone/Acetaminophen (*Crx) 5-325 Mg Tablet PO Q4H PRN Moderate Pain (4-6) Atorvastatin Calcium 10 mg 12/19/24 09:00 12/19/24 07:46 Atorvastatin 10 Mg Tablet PO 10 mg DAILY VENTURA Administration Docusate Sodium 100 mg 12/18/24 17:56 Docusate Sodium 100 Mg Capsule PO BID PRN Constipation Enoxaparin Sodium 40 mg 12/19/24 09:00 12/19/24 07:50 Enoxaparin 40 Mg/0.4 Ml Syringe SUB-Q 40 mg DAILY VENTURA Administration Escitalopram Oxalate 10 mg 12/19/24 09:00 12/19/24 07:46 Escitalopram Oxalate 10 Mg Tablet PO 10 mg DAILY VENTURA Administration Hydrochlorothiazide 12.5 mg 12/19/24 09:00 12/19/24 07:45 Hydrochlorothiazide 12.5 Mg Capsule PO 12.5 mg DAILY VENTURA Administration Pantoprazole Sodium 40 mg 12/19/24 09:00 12/19/24 07:45 Pantoprazole 40 Mg Tablet PO 40 mg DAILY VENTURA Administration Ramipril 5 mg 12/19/24 09:00 12/19/24 07:45 Ramipril 5 Mg Capsule PO 5 mg DAILY VENTURA Administration Radiology Results: ITS Impressions Chest X-Ray 12/19/24 08:01 Impression: 1: Stable small left apical pneumothorax. 2: Smoothly marginated pleural-based opacity left mid thorax. Recommend further evaluation with CT. Labs Labs: Laboratory Results - last 24 hr 12/18/24 12/18/24 12/18/24 10:21 13:54 16:43 WBC RBC Hgb Hct MCV MCH MCHC RDW Plt Count MPV Immature Gran % (Auto) Neut % (Auto) Lymph % (Auto) [place] % (Auto) Eos % (Auto) Baso % (Auto) Lymph # (Auto) [place] # (Auto) Eos # (Auto) Baso # (Auto) Abs Immat Gran (auto) Absolute Neuts (auto) Absolute Nucleated RBC Nucleated RBC % PT 13.4 INR 1.0 APTT 37.7 H Sodium 136 L Potassium 4.4 Chloride 99 Carbon Dioxide 31 H Anion Gap 6 BUN 19 Creatinine 0.88 Estim Creat Clear Calc 56 Estimated GFR > 60 Glucose 99 Calcium 9.5 Total Bilirubin 1.3 AST 35 ALT 22 Alkaline Phosphatase 63 Troponin I < 0.012 < 0.012 < 0.012 Total Protein 7.5 Albumin 4.5 Lipase 104 12/19/24 05:49 WBC 5.7 RBC 4.24 L Hgb 13.4 L Hct 39.6 L MCV 93.4 MCH 31.6 MCHC 33.8 RDW 12.7 Plt Count 211 MPV 9.2 Immature Gran % (Auto) 0.2 Neut % (Auto) 51.4 Lymph % (Auto) 29.9 [place] % (Auto) 14.5 H Eos % (Auto) 3.5 Baso % (Auto) 0.5 Lymph # (Auto) 1.71 [place] # (Auto) 0.8 H Eos # (Auto) 0.2 Baso # (Auto) 0.0 Abs Immat Gran (auto) 0.01 Absolute Neuts (auto) 2.9 Absolute Nucleated RBC 0.000 Nucleated RBC % 0.0 PT INR APTT Sodium 136 L Potassium 4.2 Chloride 99 Carbon Dioxide 32 H Anion Gap 5 BUN 17 Creatinine 0.89 Estim Creat Clear Calc 56 Estimated GFR > 60 Glucose 95 Calcium 9.1 Total Bilirubin AST ALT Alkaline Phosphatase Troponin I Total Protein Albumin Lipase
[2024-12-19 12:00] VITALS: BP 117/64; PULSE 60; PULSE 66; RESP 20; TEMP 36.3; O2SAT 100
--- NOTE | 2024-12-19 14:23 | P.DS_ITS ---
DS: Admitting Diagnosis Discharge Date 12/19/2024 Admitting Diagnosis left chest discomfort DS: Discharge Diagnosis Discharge Diagnosis (1) Bilateral pneumothorax: Code(s): J93.9 - Pneumothorax, unspecified Status: Acute (2) Spontaneous pneumothorax: Code(s): J93.83 - Other pneumothorax Status: Acute (3) GERD (gastroesophageal reflux disease): Code(s): K21.9 - Gastro-esophageal reflux disease without esophagitis Status: Acute (4) Hypertension: Code(s): I10 - Essential (primary) hypertension Status: Acute (5) Depression: Code(s): F32.A - Depression, unspecified Status: Acute (6) Hyperlipidemia: Code(s): E78.5 - Hyperlipidemia, unspecified Status: Acute Plan PCP with chest xray in 1 week. DS: Summary Hospital Course Reason for hospitalization: Left chest discomfort concerning for heart attack Hospital Course: Jonathan Stein is an 84 year old male with pmhx of HTN, HLD, Depression who is here for left chest discomfort. Patient was placed on non-rebreather. Chest x- ray was repeated-pneumothorax was stable or no change was a size. CT chest was obtained this morning to asses the etiology, read by the Radiology in conjunction with pulmonology. In the CT chest, no COPD/emphysema/asthma/tumor/nodule, only scar noted. The bilateral pneumothorax could be secondary to the scar. Patient to follow with his PCP in 1 week was a chest x-ray. If chest x-ray does not show any improvement he needs a a cardiothoracic surgeon for evaluation refer. Discussed the plan with cold rolling coordinator, the patient, patient was deemed stable to be discharged. General surgery was consulted for possible chest tube but patient was stable and pneumothorax did not worsen. They recommended discharge home without oxygen. Patient was discharged home in a stable condition. Time Spent with Patient Time attestation: Total time spent providing and/or coordinating discharge services: Exam Narrative: APPEARANCE: No acute distress, pleasant demented talk EYES: EOMI HEENT: Normocephalic, atraumatic, OMM RESPIRATORY: No respiratory distress Clear to auscultation bilaterally with no rhonchi wheezing or rales. CARDIOVASCULAR: RRR, S1 and S2 without murmurs rubs or gallops. ABDOMINAL: Soft, nontender, nondistended, no rebound or guarding MSK: 5/5 motor strength throughout his extremities NEURO: Awake and alert. Following commands, speech normal, no focal deficits SKIN:: Warm, dry. No rashes lesions or abrasions PSYCHIATRIC: Normal affect/mood, DS: Data Data Completed and Pending Labs on day of discharge: Labs from last 24 hours 12/19/24 12/18/24 12/18/24 05:49 16:43 13:54 WBC 5.7 RBC 4.24 L Hgb 13.4 L Hct 39.6 L MCV 93.4 MCH 31.6 MCHC 33.8 RDW 12.7 Plt Count 211 MPV 9.2 Immature Gran % (Auto) 0.2 Neut % (Auto) 51.4 Lymph % (Auto) 29.9 Holmes % (Auto) 14.5 H Eos % (Auto) 3.5 Baso % (Auto) 0.5 Lymph # (Auto) 1.71 Holmes # (Auto) 0.8 H Eos # (Auto) 0.2 Baso # (Auto) 0.0 Abs Immat Gran (auto) 0.01 Absolute Neuts (auto) 2.9 Absolute Nucleated RBC 0.000 Nucleated RBC % 0.0 Sodium 136 L Potassium 4.2 Chloride 99 Carbon Dioxide 32 H Anion Gap 5 BUN 17 Creatinine 0.89 Estim Creat Clear Calc 56 Estimated GFR > 60 Glucose 95 Calcium 9.1 Troponin I < 0.012 < 0.012 Discharge Plan Discharge Attending physician on discharge: Donnie Sharpe Consulting providers: Simon Thorpe; Michael Gandhi Discharging Clinician: Bharti Melendez Anticipated Discharge Date/Time: 12/19/24 14:18 Patient Disposition: Home Activity: unlimited Diet: as tolerated Discharge Instructions: * Avoid strenuous activity and heavy lifting. No air travel or scuba diving until otherwise advised by your doctor. * Return to emergency department if you experience symptoms such as sudden increase in chest pain, new or worsening shortness of breath, lightheadedness or palpitations. * Follow up with primary care or pulmonology. Patient Instructions: Antibiotic Form, Spontaneous Pneumothorax (DC) Patient Language: Turkmen Stand Alone Forms: General Discharge Information Follow-up/Referrals: PHYSICIAN NOT ON STAFF,NONSTAFF [Primary Care Provider] - 1 Week Referral Note: PCP chest xray in one week Discharge Medications: Continued ramipril 5 mg capsule 5 mg PO DAILY hydrochlorothiazide 12.5 mg capsule 12.5 mg PO DAILY atorvastatin 10 mg tablet 10 mg PO DAILY escitalopram oxalate 10 mg tablet 10 mg PO DAILY pantoprazole 40 mg tablet,delayed release (DR/EC) 40 mg PO DAILY Date of admission: 12/19/24 10:03 Primary Care Provider: PHYSICIAN NOT ON STAFF,NONSTAFF Admitting Provider: Donnie Sharpe Attending physician on admission: Donnie Sharpe Condition: Stable
== END 2024-12-19 15:20 | disposition home or self-care (01) | DRG 201 ==
LOC: ANHED 11:26 → ANH3MEDSUR 14:43
PROVIDERS: Nurse Practitioner Gerontology; Admitting Provider General Practice; Emergency Provider Student in an Organized Health Care Education/Training Program; Visit Provider Student in an Organized Health Care Education/Training Program
DX: J93.11 Primary spontaneous pneumothorax (principal); I25.10 Atherosclerotic heart disease of native coronary artery without angina pectoris; E78.5 Hyperlipidemia, unspecified; K21.9 Gastro-esophageal reflux disease without esophagitis; F32.A Depression, unspecified; Z95.5 Presence of coronary angioplasty implant and graft; Z87.891 Personal history of nicotine dependence
CPT/HCPCS: 36415; 71045; 71046; 71250; 80048; 80053; 83690; 84484; 85025; 85610; 85730; 93005; 99283; 99285; A9270; G0378; J1650